=== PATIENT | female | born 1950 | race Caucasian/White ===

== ENCOUNTER 2018-11-26 14:00 | Outpatient (RCR) | payer MEDICARE, OTHER | END 2018-11-26 14:30 | disposition home or self-care (01) | LOC: PT 14:00 | DX: M54.41 Lumbago with sciatica, right side (principal); G89.29 Other chronic pain ==

== ENCOUNTER 2020-01-19 10:35 | Emergency (ER) | payer MEDICARE, OTHER ==
[~2020-01-19] VITALS: Wt 97.7 kg
[2020-01-19 11:29] LABS: EOS # 0.2 (0.04-0.40); EOS % 3.1 % (1.0-5.0); HEMATOCRIT 40.6 % (37.0-47.0); HEMOGLOBIN 13.3 g/dL (12.5-16.0); MEAN CELL VOLUME 97 fl (78-100); MEAN CORPUSCULAR HEMOGLOBIN 32 pg (27-31); MEAN CORPUSCULAR HGB CONC 33 g/dL (33-37); MONO # 0.4 (0.20-0.80); NEU # 3.6 (1.40-6.50); PLATELET COUNT 287 K/mm3 (130-400); RED BLOOD COUNT 4.17 M/mm3 (4.10-5.30); RED CELL DISTRIBUTION WIDTH 13.8 % (11.5-14.5); WHITE BLOOD COUNT 6.2 K/mm3 (4.8-10.8)
[2020-01-19 11:39] LABS: ALBUMIN 3.9 g/dL (3.4-4.8); SODIUM 142 mmol/L (136-145)
[2020-01-19 11:40] LABS: CALCIUM 9.2 mg/dL (8.3-10.5)
[2020-01-19] MEDS ORDERED: AMLODIPINE BESYL5 MG PO (11:41)
[2020-01-19] MEDS ORDERED: TYLENOL EXTRA500 M2 PO (11:41)
[2020-01-19 11:42] LABS: GLUCOSE 124 mg/dL (65-105); TOTAL PROTEIN 6.9 g/dL (6.2-8.1)
[2020-01-19] MEDS ORDERED: ATORVASTATIN CA80 MG PO (11:42)
[2020-01-19] MEDS ORDERED: ASPIRIN E.C. 8181 MG PO (11:42)
[2020-01-19] MEDS ORDERED: CALCIUM 500 +1 EAC1 PO (11:42)
[2020-01-19] MEDS ORDERED: B COMPLEX1 EACH PO (11:42)
[2020-01-19 11:43] LABS: CARBON DIOXIDE 23 mmol/L (23-31); TOTAL BILIRUBIN 0.7 mg/dL (0.2-1.2)
[2020-01-19] MEDS ORDERED: REFRESH RELIEVA10 ML OU (11:43)
[2020-01-19] MEDS ORDERED: TEMOVATE15 GM TP (11:43)
[2020-01-19] MEDS ORDERED: ESTRACE1 M1 PO (11:44)
[2020-01-19] MEDS ORDERED: COLACE100 M1 PO (11:44)
[2020-01-19] MEDS ORDERED: EZETIMIBE10 M1 PO (11:45)
[2020-01-19] MEDS ORDERED: CLARITIN 1010 MG/TAB PO (11:45)
[2020-01-19] MEDS ORDERED: ZESTRIL40 M1 PO (11:45)
[2020-01-19] MEDS ORDERED: TOPAMAX25 MG PO (11:46)
[2020-01-19] MEDS ORDERED: PANTOPRAZOLE SO40 MG PO (11:46)
[2020-01-19] MEDS ORDERED: ATIVAN1 M1 PO (11:46)
[2020-01-19 11:47] LABS: AST-SGOT 17 U/L (5-34)
[2020-01-19] MEDS ORDERED: DESYREL50 MG PO (11:47)
[2020-01-19 11:48] LABS: ALT/SGPT 17 U/L (0-55)
[2020-01-19 12:12] LABS: URINE APPEARANCE CLEAR; URINE BILIRUBIN NEGATIVE (NEGATIVE); URINE BLOOD NEGATIVE (NEGATIVE); URINE COLOR YELLOW; URINE GLUCOSE NEGATIVE (NEGATIVE); URINE KETONE NEGATIVE (NEGATIVE); URINE LEUKOCYTE ESTERASE NEGATIVE (NEGATIVE); URINE NITRATE NEGATIVE (NEGATIVE); URINE PROTEIN(semi-quant) NEGATIVE (NEGATIVE); URINE UROBILINOGEN NORMAL (NORMAL); URINE WBC 0-1 /hpf (0-3)
[2020-01-19] MEDS ORDERED: NORVASC 10MG10 MG PO (12:58)
[2020-01-19 13:11] LABS: TROPONIN-I < 0.03 ng/mL (<0.030)
[2020-01-19 13:12] VITALS: BP 148/71
== END 2020-01-19 13:13 | disposition home or self-care (01) ==
LOC: ED 10:35
PROVIDERS: Physician Assistant
DX: I10 Essential (primary) hypertension (principal); E11.9 Type 2 diabetes mellitus without complications; Z79.82 Long term (current) use of aspirin; Z88.2 Allergy status to sulfonamides; Z88.8 Allergy status to other drugs, medicaments and biological substances

== ENCOUNTER → 2020-12-27 | Outpatient (CLI) | payer MEDICARE, OTHER ==
[~2020-12-27] MED LIST: AMLODIPINE BESYL5 MG PO; ASPIRIN E.C. 8181 MG PO; ATIVAN1 M1 PO; ATORVASTATIN CA80 MG PO; B COMPLEX1 EACH PO; BACLOFEN10 M1 PO; BYSTOLIC10 MG PO; CALCIUM 500 +1 EAC1 PO; CLARITIN 1010 MG/TAB PO; CLONIDINE HYDR0.1 MG PO; COLACE100 M1 PO; DAILY VALUE1 EACH PO; DESYREL50 MG PO; DOXAZOSIN2 MG PO; ESTRACE1 M1 PO; EZETIMIBE10 M1 PO; LORAZEPAM1 M1 PO; NORVASC 10MG10 MG PO; PANTOPRAZOLE SO40 MG PO; REFRESH RELIEVA10 ML OU; TEMOVATE15 GM TP; TOPAMAX25 MG PO; TRAMADOL 50 MG TAB PO; TYLENOL EXTRA500 M2 PO; ZESTRIL40 M1 PO; ZETIA10 M1 PO
== END ==
LOC: RAD 10:50
DX: E04.1 Nontoxic single thyroid nodule (principal)

== ENCOUNTER 2021-02-14 08:51 | Outpatient (RCR) | payer MEDICARE, OTHER ==
[~2021-02-14 08:51] MED LIST changes: -BACLOFEN10 M1 PO; -BYSTOLIC10 MG PO; -CLONIDINE HYDR0.1 MG PO; -DAILY VALUE1 EACH PO; -DOXAZOSIN2 MG PO; -LORAZEPAM1 M1 PO; -TRAMADOL 50 MG TAB PO; -ZETIA10 M1 PO
[2021-03-18] MEDS ORDERED: BYSTOLIC10 MG PO (19:56)
[2021-03-18] MEDS ORDERED: ZETIA10 M1 PO (19:57)
[2021-03-18] MEDS ORDERED: DAILY VALUE1 EACH PO (19:58)
[2021-03-18] MEDS ORDERED: DOXAZOSIN2 MG PO (20:01)
[2021-03-18] MEDS ORDERED: TRAMADOL 50 MG TAB PO (20:02)
[2021-03-18] MEDS ORDERED: BACLOFEN10 M1 PO (20:03)
[2021-03-18] MEDS ORDERED: LORAZEPAM1 M1 PO (20:13)
[2021-03-18] MEDS ORDERED: CLONIDINE HYDR0.1 MG PO (23:53)
== END 2021-05-15 | disposition home or self-care (01) ==
LOC: PT
DX: M51.36 Other intervertebral disc degeneration, lumbar region (principal); M47.816 Spondylosis without myelopathy or radiculopathy, lumbar region

== ENCOUNTER 2021-03-18 19:28 | Emergency (ER) | payer MEDICARE, OTHER ==
[~2021-03-18] VITALS: Ht 167.6 cm; Wt 96.6 kg
[2021-03-18] MEDS ORDERED: BYSTOLIC10 MG PO (19:56)
[2021-03-18] MEDS ORDERED: ZETIA10 M1 PO (19:57)
[2021-03-18] MEDS ORDERED: DAILY VALUE1 EACH PO (19:58)
[2021-03-18] MEDS ORDERED: DOXAZOSIN2 MG PO (20:01)
[2021-03-18] MEDS ORDERED: TRAMADOL 50 MG TAB PO (20:02)
[2021-03-18] MEDS ORDERED: BACLOFEN10 M1 PO (20:03)
[2021-03-18] MEDS ORDERED: LORAZEPAM1 M1 PO (20:13)
[2021-03-18 21:53] LABS: BASO # 0.01 (0.02-0.10); EOS # 0.05 (0.04-0.40); EOS % 0.9 % (1.0-5.0); HEMATOCRIT 38.1 % (37.0-47.0); HEMOGLOBIN 12.6 g/dL (12.5-16.0); LYMPH# 2.42 (1.50-4.00); MEAN CELL VOLUME 100 fl (78-100); MEAN CORPUSCULAR HEMOGLOBIN 33 pg (27-31); MEAN CORPUSCULAR HGB CONC 33 g/dL (33-37); MEAN PLATELET VOLUME 9.3 fl (7.4-10.4); MONO # 0.33 (0.20-0.80); NEU # 2.88 (1.40-6.50); PLATELET COUNT 200 K/mm3 (130-400); RED BLOOD COUNT 3.82 M/mm3 (4.10-5.30); RED CELL DISTRIBUTION WIDTH 13.2 % (11.5-14.5); WHITE BLOOD COUNT 5.7 K/mm3 (4.8-10.8)
[2021-03-18 22:05] LABS: ALBUMIN 3.7 g/dL (3.4-4.8); POTASSIUM 3.7 mmol/L (3.5-5.1); SODIUM 144 mmol/L (136-145)
[2021-03-18 22:06] LABS: CALCIUM 9.2 mg/dL (8.3-10.5)
[2021-03-18 22:07] LABS: GLUCOSE 115 mg/dL (65-105); TOTAL PROTEIN 6.5 g/dL (6.2-8.1)
[2021-03-18 22:09] LABS: CARBON DIOXIDE 24 mmol/L (23-31); TOTAL BILIRUBIN 0.4 mg/dL (0.2-1.2)
[2021-03-18 22:13] LABS: AST-SGOT 16 U/L (5-34)
[2021-03-18 22:14] LABS: ALT/SGPT 20 U/L (0-55)
[2021-03-18 22:22] LABS: TROPONIN-I < 0.03 ng/mL (<0.030)
[2021-03-18] MEDS ORDERED: CLONIDINE HYDR0.1 MG PO (23:53)
[2021-03-19 00:12] VITALS: BP 169/79
== END 2021-03-19 00:13 | disposition home or self-care (01) ==
LOC: ED 19:28
PROVIDERS: Nurse Practitioner Family
DX: I10 Essential (primary) hypertension (principal); F41.9 Anxiety disorder, unspecified; N17.9 Acute kidney failure, unspecified; Z79.899 Other long term (current) drug therapy

== ENCOUNTER 2021-06-01 20:32 | Emergency (ER) | payer MEDICARE, OTHER ==
[~2021-06-01] VITALS: Ht 167.6 cm; Wt 92.5 kg
[~2021-06-01 20:32] MED LIST changes: +BACLOFEN10 M1 PO; +BYSTOLIC10 MG PO; +CLONIDINE HYDR0.1 MG PO; +DAILY VALUE1 EACH PO; +DOXAZOSIN2 MG PO; +LORAZEPAM1 M1 PO; +TRAMADOL 50 MG TAB PO; +ZETIA10 M1 PO
[2021-06-01 23:02] LABS: BASO # 0.02 K/mm3 (0.02-0.10); EOS # 0.13 K/mm3 (0.04-0.40); EOS % 2.8 % (1.0-5.0); HEMATOCRIT 34.4 % (37.0-47.0); HEMOGLOBIN 11.2 g/dL (12.5-16.0); LYMPH# 1.27 K/mm3 (1.50-4.00); MEAN CELL VOLUME 101 fl (78-100); MEAN CORPUSCULAR HEMOGLOBIN 33 pg (27-31); MEAN CORPUSCULAR HGB CONC 33 g/dL (33-37); MEAN PLATELET VOLUME 9.2 fl (7.4-10.4); MONO # 0.45 K/mm3 (0.20-0.80); NEU # 2.78 K/mm3 (1.40-6.50); PLATELET COUNT 182 K/mm3 (130-400); RED BLOOD COUNT 3.41 M/mm3 (4.10-5.30); RED CELL DISTRIBUTION WIDTH 13.1 % (11.5-14.5); WHITE BLOOD COUNT 4.7 K/mm3 (4.8-10.8)
[2021-06-01 23:12] LABS: CALCIUM 8.5 mg/dL (8.3-10.5)
[2021-06-02 00:05] VITALS: BP 151/84
== END 2021-06-02 00:05 | disposition home or self-care (01) ==
LOC: ED 20:32
PROVIDERS: Family Medicine
DX: E86.9 Volume depletion, unspecified (principal); R73.9 Hyperglycemia, unspecified; I10 Essential (primary) hypertension; E78.5 Hyperlipidemia, unspecified; K21.9 Gastro-esophageal reflux disease without esophagitis; Z79.899 Other long term (current) drug therapy
CPT/HCPCS: J1885; J2765; J7030

== ENCOUNTER 2021-08-15 09:59 | Outpatient (RCR) | payer MEDICARE, OTHER | END 2021-08-27 | disposition home or self-care (01) | LOC: PT | DX: M89.8X1 Other specified disorders of bone, shoulder (principal) ==

== ENCOUNTER 2021-08-30 15:15 | Outpatient (RCR) | payer MEDICARE, OTHER | END 2021-09-24 | disposition home or self-care (01) | LOC: PT | DX: M89.8X1 Other specified disorders of bone, shoulder (principal) ==

== ENCOUNTER 2021-09-27 12:57 | Outpatient (RCR) | payer MEDICARE, OTHER | END 2021-10-03 17:00 | disposition home or self-care (01) | LOC: PT 12:57 | DX: M89.8X1 Other specified disorders of bone, shoulder (principal) ==

== ENCOUNTER 2021-11-21 23:35 | Emergency (ER) | payer MEDICARE, OTHER ==
[~2021-11-21] VITALS: Ht 167.6 cm; Wt 99.0 kg
[2021-11-22] MEDS ORDERED: NEBIVOLOL HCL10 MG PO (00:14)
[2021-11-22] MEDS ORDERED: ULTRAM50 M1 PO (00:29)
[2021-11-22] MEDS ORDERED: CLONIDINE HYDR0.1 MG PO (01:16)
[2021-11-22 01:24] VITALS: BP 177/85
== END 2021-11-22 01:24 | disposition home or self-care (01) ==
LOC: ED 23:35
DX: I16.0 Hypertensive urgency (principal); M54.2 Cervicalgia; G89.29 Other chronic pain; F41.9 Anxiety disorder, unspecified; Z79.899 Other long term (current) drug therapy

== ENCOUNTER 2022-02-26 22:48 | Emergency (ER) | payer MEDICARE, OTHER ==
[~2022-02-26] VITALS: Wt 99.0 kg
[~2022-02-26 22:48] MED LIST changes: +NEBIVOLOL HCL10 MG PO; +ULTRAM50 M1 PO
[2022-02-27 01:17] LABS: BASO # 0.01 K/mm3 (0.02-0.10); EOS # 0.01 K/mm3 (0.04-0.40); EOS % 0.1 % (1.0-5.0); HEMATOCRIT 37.3 % (37.0-47.0); HEMOGLOBIN 12.2 g/dL (12.5-16.0); LYMPH# 1.14 K/mm3 (1.50-4.00); MEAN CELL VOLUME 96 fl (78-100); MEAN CORPUSCULAR HEMOGLOBIN 31 pg (27-31); MEAN CORPUSCULAR HGB CONC 33 g/dL (33-37); MEAN PLATELET VOLUME 9.1 fl (7.4-10.4); MONO # 0.28 K/mm3 (0.20-0.80); NEU # 5.34 K/mm3 (1.40-6.50); PLATELET COUNT 242 K/mm3 (130-400); RED BLOOD COUNT 3.89 M/mm3 (4.10-5.30); RED CELL DISTRIBUTION WIDTH 13.4 % (11.5-14.5); WHITE BLOOD COUNT 6.8 K/mm3 (4.8-10.8)
[2022-02-27 01:24] LABS: ALBUMIN 3.7 g/dL (3.4-4.8); POTASSIUM 3.6 mmol/L (3.5-5.1); SODIUM 141 mmol/L (136-145)
[2022-02-27 01:26] LABS: CALCIUM 8.8 mg/dL (8.3-10.5)
[2022-02-27 01:27] LABS: TOTAL PROTEIN 6.6 g/dL (6.2-8.1)
[2022-02-27 01:28] LABS: CARBON DIOXIDE 21 mmol/L (23-31); GLUCOSE 148 mg/dL (65-105)
[2022-02-27 01:29] LABS: TOTAL BILIRUBIN 0.4 mg/dL (0.2-1.2)
[2022-02-27 01:32] LABS: AST-SGOT 14 U/L (5-34)
[2022-02-27 01:33] LABS: ALT/SGPT 16 U/L (0-55)
[2022-02-27 01:40] LABS: TROPONIN-I < 0.030 ng/mL (<0.030)
[2022-02-27 01:50] VITALS: BP 178/80
[2022-02-27] MEDS ORDERED: APRESOLINE 25MG25 MG PO (01:58)
[2022-02-27] MEDS ORDERED: ZANAFLEX2 M2 PO (01:58)
== END 2022-02-27 01:50 | disposition home or self-care (01) ==
LOC: ED 22:48
PROVIDERS: Nurse Practitioner
DX: I16.0 Hypertensive urgency (principal); F41.9 Anxiety disorder, unspecified; M54.2 Cervicalgia; G89.29 Other chronic pain; I10 Essential (primary) hypertension; Z87.39 Personal history of other diseases of the musculoskeletal system and connective tissue; Z79.899 Other long term (current) drug therapy

== ENCOUNTER 2023-04-07 21:21 | Emergency (ER) | payer MEDICARE, OTHER ==
[~2023-04-07] VITALS: Ht 175.3 cm; Wt 90.9 kg
[~2023-04-07 21:21] MED LIST changes: +APRESOLINE 25MG25 MG PO; +ZANAFLEX2 M2 PO
[2023-04-07] MEDS ORDERED: NEURONTIN300 MG/CAP (21:43)
[2023-04-07] MEDS ORDERED: PANTOPRAZOLE SO40 MG PO (21:44)
[2023-04-07] MEDS ORDERED: DESYREL50 MG PO (21:46)
[2023-04-07] MEDS ORDERED: TOPIRAMATE25 MG PO (21:47)
[2023-04-07 23:41] LABS: BASO # 0.01 K/mm3 (0.02-0.10); EOS # 0.06 K/mm3 (0.04-0.40); EOS % 0.6 % (1.0-5.0); HEMATOCRIT 38.6 % (37.0-47.0); HEMOGLOBIN 12.3 g/dL (12.5-16.0); LYMPH# 2.33 K/mm3 (1.50-4.00); MEAN CELL VOLUME 100 fl (78-100); MEAN CORPUSCULAR HEMOGLOBIN 32 pg (27-31); MEAN CORPUSCULAR HGB CONC 32 g/dL (33-37); MEAN PLATELET VOLUME 9.1 fl (7.4-10.4); MONO # 0.61 K/mm3 (0.20-0.80); NEU # 6.71 K/mm3 (1.40-6.50); PLATELET COUNT 225 K/mm3 (130-400); RED BLOOD COUNT 3.88 M/mm3 (4.10-5.30); RED CELL DISTRIBUTION WIDTH 13.1 % (11.5-14.5); WHITE BLOOD COUNT 9.7 K/mm3 (4.8-10.8)
[2023-04-07 23:48] LABS: ALBUMIN 3.8 g/dL (3.4-4.8); POTASSIUM 3.4 mmol/L (3.5-5.1); SODIUM 141 mmol/L (136-145)
[2023-04-07 23:49] LABS: CALCIUM 9.7 mg/dL (8.3-10.5)
[2023-04-07 23:50] LABS: GLUCOSE 134 mg/dL (65-105)
[2023-04-07 23:51] LABS: TOTAL PROTEIN 6.8 g/dL (6.2-8.1)
[2023-04-07 23:52] LABS: CARBON DIOXIDE 19 mmol/L (23-31); TOTAL BILIRUBIN 0.6 mg/dL (0.2-1.2)
[2023-04-07 23:56] LABS: AST-SGOT 26 U/L (5-34)
[2023-04-07 23:57] LABS: ALT/SGPT 26 U/L (0-55)
[2023-04-08 00:04] LABS: TROPONIN-I < 0.030 ng/mL (<0.030)
[2023-04-08] MEDS ORDERED: NORCO 325 MG-51 TA1 PO (02:10)
[2023-04-08 02:25] VITALS: BP 153/83
== END 2023-04-08 02:25 | disposition home or self-care (01) ==
LOC: ED 21:21
PROVIDERS: Physician Assistant
DX: S52.514A Nondisplaced fracture of right radial styloid process, initial encounter for closed fracture (principal); S61.411A Laceration without foreign body of right hand, initial encounter; S80.02XA Contusion of left knee, initial encounter; S80.01XA Contusion of right knee, initial encounter; Z98.890 Other specified postprocedural states; W01.198A Fall on same level from slipping, tripping and stumbling with subsequent striking against other object, initial encounter
CPT/HCPCS: J3010

== ENCOUNTER 2023-04-09 23:18 | Emergency (ER) | payer MEDICARE, OTHER ==
[~2023-04-09] VITALS: Ht 167.6 cm; Wt 90.9 kg
[~2023-04-09 23:18] MED LIST changes: +NEURONTIN300 MG/CAP; +NORCO 325 MG-51 TA1 PO; +TOPIRAMATE25 MG PO
[2023-04-09 23:20] VITALS: BP 160/76
[2023-04-10] MEDS ORDERED: AMOXICILLIN AND1 TA2 PO (00:05)
== END 2023-04-10 00:10 | disposition home or self-care (01) ==
LOC: ED 23:18
DX: S81.811A Laceration without foreign body, right lower leg, initial encounter (principal); Z88.2 Allergy status to sulfonamides; W54.8XXA Other contact with dog, initial encounter

== ENCOUNTER → 2023-04-10 | Outpatient (CLI) | payer MEDICARE, OTHER ==
[~2023-04-10] MED LIST changes: +AMOXICILLIN AND1 TA2 PO
== END ==
LOC: RAD 13:58
DX: K59.00 Constipation, unspecified (principal)

== ENCOUNTER 2023-05-28 08:00 | Outpatient (RCR) | payer MEDICARE, OTHER | END 2023-06-26 | disposition home or self-care (01) | LOC: PT | DX: R53.1 Weakness (principal); G25.3 Myoclonus ==

== ENCOUNTER 2023-07-02 08:00 | Outpatient (RCR) | payer MEDICARE, OTHER | END 2023-07-27 | disposition home or self-care (01) | LOC: PT | DX: G25.3 Myoclonus (principal); R53.1 Weakness ==

== ENCOUNTER → 2024-08-19 | Outpatient (CLI) | payer MEDICARE, OTHER | LOC: RAD 14:00 | DX: M19.041 Primary osteoarthritis, right hand (principal) ==

== ENCOUNTER → 2024-10-15 | Outpatient (CLI) | payer MEDICARE, OTHER ==
[2024-10-15 13:22] LABS: EOS # 0.03 K/mm3 (0.04-0.40); EOS % 0.6 % (1.0-5.0); HEMATOCRIT 43.3 % (37.0-47.0); LYMPH# 1.38 K/mm3 (1.50-4.00); MEAN CELL VOLUME 95 fl (78-100); MEAN CORPUSCULAR HEMOGLOBIN 31 pg (27-31); MEAN CORPUSCULAR HGB CONC 32 g/dL (33-37); MEAN PLATELET VOLUME 8.7 fl (7.4-10.4); MONO # 0.34 K/mm3 (0.20-0.80); NEU # 3.53 K/mm3 (1.40-6.50); PLATELET COUNT 279 K/mm3 (130-400); RED BLOOD COUNT 4.55 M/mm3 (4.10-5.30); RED CELL DISTRIBUTION WIDTH 13.2 % (11.5-14.5); WHITE BLOOD COUNT 5.3 K/mm3 (4.8-10.8)
[2024-10-15 13:33] LABS: ALBUMIN 4.1 g/dL (3.4-4.8); SODIUM 140 mmol/L (136-145)
[2024-10-15 13:34] LABS: CALCIUM 10.1 mg/dL (8.3-10.5)
[2024-10-15 13:35] LABS: GLUCOSE 97 mg/dL (65-105)
[2024-10-15 13:36] LABS: CARBON DIOXIDE 24 mmol/L (23-31); TOTAL PROTEIN 7.7 g/dL (6.2-8.1)
[2024-10-15 13:37] LABS: TOTAL BILIRUBIN 0.3 mg/dL (0.2-1.2)
[2024-10-15 13:41] LABS: AST-SGOT 15 U/L (5-34)
[2024-10-15 13:42] LABS: ALT/SGPT 13 U/L (0-55)
[2024-10-15 13:55] LABS: TROPONIN-I < 0.030 ng/mL (0.00-0.033)
[2024-10-15 15:00] LABS: URINE APPEARANCE CLOUDY (CLEAR); URINE COLOR YELLOW (YELLOW)
[2024-10-15 15:03] LABS: PH-URINE 7.5 (5.0 - 8.0); URINE PROTEIN(semi-quant) 1+ (NEGATIVE)
[2024-10-15 15:04] LABS: URINE BILIRUBIN NEGATIVE (NEGATIVE); URINE BLOOD NEGATIVE (NEGATIVE); URINE GLUCOSE NEGATIVE (NEGATIVE); URINE KETONE NEGATIVE (NEGATIVE); URINE LEUKOCYTE ESTERASE NEGATIVE (NEGATIVE); URINE NITRATE NEGATIVE (NEGATIVE)
== END ==
LOC: LAB 12:22
PROVIDERS: Family Medicine
DX: R53.83 Other fatigue (principal); R42 Dizziness and giddiness; R79.89 Other specified abnormal findings of blood chemistry